=== PATIENT | male | born 1950 | race Caucasian/White ===

== ENCOUNTER → 2018-05-08 | Outpatient (CLI) | payer MEDICARE, OTHER ==
[~2018-05-08] MED LIST: IOPAMIDOL (ISOVUE 370) 100 ML BTL IV ONE
== END ==
LOC: FIMAGING 08:14
PROVIDERS: ATTEND Surgery
DX: N13.30 Unspecified hydronephrosis (principal); R19.02 Left upper quadrant abdominal swelling, mass and lump; I71.4 Abdominal aortic aneurysm, without rupture; R91.1 Solitary pulmonary nodule
CPT/HCPCS: 74174; Q9967; 82565-PO

== ENCOUNTER 2018-06-03 08:54 | Inpatient (IN) | payer OTHER ==
--- NOTE | 2018-06-03 09:01 | PDHPUP ---
History & Physical Update H&P update statement: This history and physical update is based on an assessment of the patient which was completed after admission or registration (within 24 hours), but prior to the surgery/procedure. H&P update: H&P reviewed & patient examined, no change in patient's condition since H&P completed
[2018-06-03] MEDS ORDERED: fentaNYL 100 MCG/2 ML INJ IVP PRN ×2 (09:17→15:05)
[2018-06-03] MEDS ORDERED: GLUCAGON HCL 1 MG VIAL IVP PRN (09:17)
[2018-06-03] MEDS ORDERED: NALOXONE HCL 0.4 MG/ML INJ IVP PRN ×2 (09:17→15:05)
[2018-06-03] MEDS ORDERED: FLUMAZENIL 0.5 MG/5 ML MDV IVP PRN (09:17)
[2018-06-03] MEDS ORDERED: PROTAMINE SULFATE 50 MG/5 ML VIAL IVP PRN (09:17)
[2018-06-03] MEDS ORDERED: ceFAZolin 2 GM/DEXTROSE 100 ML IV ONE (09:17)
[2018-06-03] MEDS ORDERED: MIDAZOLAM 2 MG/2 ML VIAL IVP PRN (09:17)
[2018-06-03] MEDS ORDERED: HEPARIN 10,000 UNIT/10 ML MDV (1,000 UNIT/ML) IVP PRN (09:17)
[2018-06-03] MEDS ORDERED: MEPERIDINE 25 MG/ML SYR IVP PRN (09:17)
[2018-06-03] MEDS ORDERED: ALTEPLASE 2 MG VIAL IVP PRN (09:17)
[2018-06-03] MEDS ORDERED: LR 1,000 ML IV ONE (09:17)
--- NOTE | 2018-06-03 09:26 | PDANEPAE ---
ANE Past Medical History - Cardiovascular History Hx Hypertension: No Hx Arrhythmias: No Hx Chest Pain: No Hx Coronary Artery / Peripheral Vascular Disease: No Hx CHF / Valvular Disease: No Hx Palpitations: No Cardiovascular History Comment: Slight heart enlargement - Pulmonary History Hx COPD: No Hx Asthma/Reactive Airway Disease: No Hx Recent Upper Respiratory Infection: No Hx Oxygen in Use at Home: No Hx Sleep Apnea: No - Neurologic History Hx Cerebrovascular Accident: No Hx Seizures: No Hx Dementia: No - Endocrine History Hx Diabetes: No Hypothyroid: No Hyperthyroid: No Obesity: yes, moderate - Renal History Hx Renal Disorders: No - Liver History Hx Hepatic Disorders: No - Neurological & Psychiatric Hx Hx Neurological and Psychiatric Disorders: No - Cancer History Hx Cancer: No - Congenital Disorder History Hx Congenital Disorders: No - GI History GERD: no Hx Gastrointestinal Disorders: No - Other Health History Other Health History: Wears dentures., Dry - Chronic Pain History Chronic Pain: No - Surgical History Prior Surgeries: Hydrocelectomy ANE Review of Systems Review of Systems: - Exercise capacity METS (RN): 4 METS ANE Patient History - Allergies Allergies/Adverse Reactions: petroleum Allergy (Uncoded 05/22/18 10:25) - Anes Hx Anes Hx: no prior problems - Smoking Hx Smoking Status: Current some day smoker Marijuana use: No - Alcohol Use Alcohol Use: Rarely - Family Anes Hx Family Anes Hx: neg - N/A ANE Labs/Vital Signs - Labs Result Diagrams: 06/03/18 10:00 06/03/18 10:00 - Vital Signs Height: 187.96 cm Weight: 136.531 kg ANE Physical Exam - Airway Neck exam: decreased ROM Mallampati Score: Class 3 Mouth exam: dentures - Pulmonary Pulmonary: no respiratory distress, no rales or rhonchi, clear to auscultation - Cardiovascular Cardiovascular: regular rate and rhythym, no murmur, rub, or gallop - ASA Status ASA Status: III ANE Anesthesia Plan Anesthesia Plan: general endotracheal anesthesia Lines/Monitors: arterial line Total IV Anesthesia: No
[2018-06-03] MEDS ORDERED: IOPAMIDOL (ISOVUE-300) 100 ML BTL ONE ×2 (10:37→15:01)
[2018-06-03] MEDS ORDERED: PROPOFOL 200 MG/20 ML VIAL ONE (10:52)
[2018-06-03] MEDS ORDERED: fentaNYL 100 MCG/2 ML INJ ONE ×2 (10:52→15:26)
[2018-06-03] MEDS ORDERED: ONDANSETRON 4 MG/2 ML VIAL ONE (10:52)
[2018-06-03] MEDS ORDERED: PROPOFOL/EMULSION 500 MG/50 ML BOTTLE IV ONE ×3 (10:52→13:49)
[2018-06-03] MEDS ORDERED: REMIFENTANIL HCL 1 MG VIAL ONE (10:52)
[2018-06-03] MEDS ORDERED: ROCURONIUM 100 MG/10 ML VIAL ONE (10:53)
[2018-06-03] MEDS ORDERED: CEFAZOLIN 1 GM/DEXTROSE/50 ML BAG IV ONE (10:55)
[2018-06-03] MEDS ORDERED: LIDOCAINE 2% 5 ML SDV ONE (11:00)
[2018-06-03] MEDS ORDERED: PHENYLEPHRINE HCL 100 MCG/ML SYR ONE ×2 (11:11→13:39)
[2018-06-03 11:18] LABS: PLATELET COUNT 192 10^3/uL (150-400)
[2018-06-03] MEDS ORDERED: LIDOCAINE 2% JELLY 20 ML (UROJECT) ONE (11:18)
[2018-06-03] MEDS ORDERED: ePHEDrine SULFATE 25 MG/5 ML SYR ONE ×2 (11:43→12:12)
[2018-06-03 11:47] LABS: INR 1.02 (0.83-1.16); PROTIME(PATIENT) 13.6 SEC (12.0-15.0)
[2018-06-03] MEDS ORDERED: HEPARIN 10,000 UNIT/10 ML MDV (1,000 UNIT/ML) ONE (12:15)
[2018-06-03] MEDS ORDERED: ROCURONIUM 50 MG/5 ML VIAL ONE (13:13)
[2018-06-03] MEDS ORDERED: ALBUMIN 5% 500 ML BOTTLE IV ONE (14:09)
[2018-06-03] MEDS ORDERED: ALBUMIN 5% 500 ML IV ONE ×2 (14:30)
[2018-06-03] MEDS ORDERED: NEOSTIGMINE METHYLSULFATE 5 MG/5 ML SYR ONE (14:36)
[2018-06-03] MEDS ORDERED: GLYCOPYRROLATE 0.2 MG/1 ML VIAL ONE ×5 (14:37)
[2018-06-03] MEDS ORDERED: ONDANSETRON DISINTEGRATING 4 MG TAB PO PRN (14:54)
[2018-06-03] MEDS ORDERED: ONDANSETRON 4 MG/2 ML VIAL IVP PRN ×2 (14:54→15:05)
[2018-06-03] MEDS ORDERED: POLYETHYLENE GLYCOL 3350 17 GM PKT PO PRN (14:54)
[2018-06-03] MEDS ORDERED: LACTULOSE 20 GM/30 ML UDCUP PO PRN (14:54)
[2018-06-03] MEDS ORDERED: MAGNESIUM HYDROXIDE 30 ML UDCUP PO PRN (14:54)
[2018-06-03] MEDS ORDERED: BISACODYL 10 MG SUPP PR PRN (14:54)
[2018-06-03] MEDS ORDERED: NS 1,000 ML IV SCH (15:00)
--- NOTE | 2018-06-03 15:03 | PDRADPN ---
Radiology Procedure Note Date of Procedure: 06/03/18 Radiologist: Triny Rodriguez Anesthesia: GET(General Endotracheal) Pre-op Diagnosis: AAA Post-op Diagnosis: SAME Indication: ENLARGING AAA Procedure: STENTGRAFT REPAIR OF AAA Inf/Abcess present in the surg proc area at time of surgery?: No
[2018-06-03] MEDS ORDERED: HYDROCODONE/APAP 5/325 TAB PO PRN (15:05)
[2018-06-03] MEDS ORDERED: PROMETHAZINE HCL 25 MG/ML INJ IVP PRN (15:05)
[2018-06-03] MEDS ORDERED: PHENYLEPHRINE HCL 100 MCG/ML SYR IVP PRN (15:05)
[2018-06-03] MEDS ORDERED: LR 500 ML IV PRN (15:05)
[2018-06-03] MEDS ORDERED: ACETAMINOPHEN 500 MG TAB PO PRN (15:05)
--- NOTE | 2018-06-03 15:07 | POSTANESTH ---
Post Anesthetic Evaluation Cardiovascular Status: Normal, Stable Respiratory Status: Normal, Stable Level of Consciousness/Mental Status: Can Participate in Eval Pain Control: Adequate, Prn Tx Ordered Nausea/Vomiting Control: Adequate, Prn Tx Ordered Complications Possibly Related to Anesthesia: None Noted
--- NOTE | 2018-06-03 16:47 | PDMN ---
Medical Necessity Medical necessity: MCG: AAA endovascular repair - 1 day: [facility] INPT only AAA without rupture 1 day OP: stent graft repair of AAA
[2018-06-03] MEDS: OXYCODONE/APAP 5/325 TAB PO PRN ×2 (17:11→19:35)
--- NOTE | 2018-06-03 18:36 | SOAPPROG ---
[facility] Progress Note Assessment/Plan: Assessment: DOING WELL POST AAA STENTGRAFT REPAIR. Plan: DISCUSSED PROCEDURE AND PLANS FOR TONIGHT WITH PATIENT. CONTINUE BED REST. OOB TO CHAIR TOMORROW. 06/03/18 18:35 Subjective: NO COMPLAINTS. AWAKE AND ALERT. Objective: Vital Signs Temp Pulse Resp BP Pulse Ox 36.3 C 80 18 132/71 H 99 06/03/18 16:07 06/03/18 18:00 06/03/18 18:00 06/03/18 18:00 06/03/18 18:00 Laboratory Results 06/03/18 14:56 06/03/18 10:00 06/02/18 06/03/18 06/04/18 05:59 05:59 05:59 Intake Total 2330 Output Total 1800 Balance 530 PT 13.6 SEC (12.0-15.0) 06/03/18 10:00 INR 1.02 (0.83-1.16) 06/03/18 10:00 SMALL AMOUNT OF HEME AT LEFT GROIN DRESSING. NO PALPABLE HEMATOMA ON EITHER SIDE. BOUNDING PEDAL PULSES. ICD10 Worksheet Patient Problems: Problems Problem Status Onset AAA (abdominal aortic aneurysm) without rupture Acute - ICD10 Problem Qualifiers (1) AAA (abdominal aortic aneurysm) without rupture
[2018-06-03] MEDS: SENNOSIDES/DOCUSATE SODIUM TAB PO SCH (19:36)
[2018-06-03] MEDS ORDERED: LORazepam 1 MG TAB PO PRN (21:50)
[2018-06-04 04:52] LABS: PLATELET COUNT 155 10^3/uL (150-400)
--- NOTE | 2018-06-04 06:59 | GOP ---
DATE OF OPERATION: 06/03/2018 SURGEON: Eddi Thakur MD ANESTHESIA: General. ANESTHESIOLOGIST: Dr. Jensen. PREOPERATIVE DIAGNOSIS: 7 cm infrarenal abdominal aortic aneurysm. POSTOPERATIVE DIAGNOSIS: 7 cm infrarenal abdominal aortic aneurysm. PROCEDURE PERFORMED: Percutaneous endovascular aortic aneurysm repair. FINDINGS: INDICATIONS: A 68-year-old male with a recent diagnosis of probable underlying bladder carcinoma. P reoperative imaging workup discloses a large 7 cm infrarenal abdominal aortic aneurysm. He is underg oing a percutaneous endovascular repair at this time. Surgical risks and benefits were explained to the patient at length including but not limited to bleeding, infection, open conversion, endoleak, ne ed for additional remedial interventions, renal injury, especially heightened by the patient's solita ry functioning right kidney; arterial injury; as well as others. All questions were entertained. He desires to proceed. Co-surgeons are being utilized given any possible anticipated access related co ncerns given the patient's anatomy. DESCRIPTION OF PROCEDURE: General anesthesia was induced. Bilateral common femoral arteries were ac cessed with micro puncture technique under direct ultrasound guidance. Multiple wire exchanges were undertaken along for ultimate placement of a 14-Turkish right groin sheath and 18-Turkish left groin sh eath. Perclose devices were deployed prior to final sheath placement. The [place] excluder graft was p assed up the left groin limb and deployed immediately beneath the dual right renal arteries. The rig ht limb of the graft was subsequently entered, allowing for placement of the contralateral limb, whic h was deployed into the common iliac artery. Angioplasty was performed at both proximally, distally, and at all limb trunk shins. Completion arteriography showed no evidence of endoleak, and preservat ion of the right dual renal arteries, as well as the internal and external iliac bifurcations. The r ight sheath was subsequently removed over a guidewire control. The Perclose device was initially penny sed with 4 vessel sealing. Multiple additional applications were utilized to allow for satisfactory closure of the right femoral artery access site with the final oozing being controlled with direct pr essure. Similar challenges were encountered with the left common femoral artery with graft removal w ith the use of a right balloon occlusion catheter and direct pressure. Multiple additional applicati ons of the Perclose device were able to be replaced also allowing for satisfactory closure of the ant erior wall of the common femoral artery. The wires and catheters were all removed. Satisfactory hem ostasis was assured. The patient was extubated in the interventional suite and taken to the intensiv e care unit uneventfully. CO-SURGEON: Eddi Thakur MD. INTERVENTIONAL RADIOLOGIST: Triny Rodriguez MD. Copy requested to: Dr. Lux Lee /[id number]/MODL
[2018-06-04] MEDS: SENNOSIDES/DOCUSATE SODIUM TAB PO SCH (08:47)
--- NOTE | 2018-06-04 09:25 | GDS ---
DISCHARGE DATE: June 04, 2018 PROCEDURE DATE: June 03, 2018. PROCEDURE: Percutaneous endovascular aortic aneurysm repair. DISCHARGE SUMMARY: This is a 68-year-old male who underwent a percutaneous endovascular aortic aneurysm repair on June 03, 2018, for a 7 cm infrarenal abdominal aortic aneurysm. He also has a notable recent diagnosis of underlying bladder carcinoma. He underwent an uncomplicated hospital course in the ICU postoperatively. Tolerating a regular diet. His pain is well controlled on NSAIDs and Tylenol. He has 2+ bounding pulses bilaterally, no notable groin hematomas, no lightheadedness, dizziness. No chest pain or shortness of breath. He will be discharged to home today. Wound care discussed with patient. May shower. Follow up in the office in 2 weeks. He will need a followup CT scan in 6 months. All questions addressed. Prescription provided for Julian. Continue all other home medications. /[id number]/MODL MTDD
--- NOTE | 2018-06-04 09:44 | SOAPPROG ---
[facility] Progress Note Assessment/Plan: Assessment: DOING WELL POST AAA STENTGRAFT REPAIR. Plan: DISCUSSED PROCEDURE AND PLANS FOR TONIGHT WITH PATIENT. CONTINUE BED REST. OOB TO CHAIR TOMORROW. 06/03/18 18:35 06/04/18 09:43 DOING WELL PPD 1 POST AAA STENTGRAFT REPAIR. D/C HOME TODAY F/U WITH DR. MUNGUIA IN CLINIC IN A FEW WEEKS. IR WILL CALL PATIENT WITH 6MONTH CTA F/U. Subjective: NO COMPLAINTS. SITTING IN CHAIR. TOLERATING PO. Objective: Vital Signs Temp Pulse Resp BP Pulse Ox 36.5 C 68 12 106/61 94 06/04/18 08:00 06/04/18 08:00 06/04/18 08:00 06/04/18 08:00 06/04/18 08:00 Laboratory Results 06/04/18 04:45 06/03/18 10:00 06/03/18 06/04/18 06/05/18 05:59 05:59 05:59 Intake Total 3713 218 Output Total 3300 300 Balance 413 -82 PT 13.6 SEC (12.0-15.0) 06/03/18 10:00 INR 1.02 (0.83-1.16) 06/03/18 10:00 NO HEMATOMA AT EITHER GROIN. PEDAL PULSES UNCHANGED. ICD10 Worksheet Patient Problems: Problems Problem Status Onset AAA (abdominal aortic aneurysm) without rupture Acute - ICD10 Problem Qualifiers (1) AAA (abdominal aortic aneurysm) without rupture
[2018-06-04] MEDS ORDERED: NS BOLUS 1000 ML (Wide open) IV ONE (10:30)
--- NOTE | 2018-06-04 12:01 | PDHOMEO2F ---
Home Oxygen Face to Face Home Orders: I certify that a physician or a nurse practitioner or physician's assistant manager airside operations has had a [id number] encounter with this patient on the date of this order due to the diagnosis listed, which relates to the primary reason the patient requires home oxygen. Alternative treatments have been tried, or considered, and deemed ineffective. It is anticipated that supplemental oxygen will result in improvement with treatment. Home oxygen qualifying diagnosis: copd Home oxygen secondary diagnosis: aaa SpO2 on room air (%): 80 Frequency of home oxygen needed: continuous Home oxygen liters per minute: 2 Home oxygen delivery device: nasal cannula Concentrator: Yes E-tanks for mobility and back up: Yes If ordering portable O2, is the patient mobile in the home?: Yes I certify that, based on these findings, the home oxygen is medically necessary for this patient for the following length of time. Length of time home oxygen needed: 1 month
[2018-06-04 12:49] VITALS: BP 130/66
== END 2018-06-04 13:43 | disposition home or self-care (01) | DRG 269 ==
LOC: FIMAGING 08:54 → F2N 14:54 → OBSVTOIN 14:54 → F2N 15:48
PROVIDERS: ADMIT Radiology Diagnostic Radiology; ATTEND Radiology Diagnostic Radiology
PROC: 04L03DZ Occlusion of Abdominal Aorta with Intraluminal Device, Percutaneous Approach (ICD-10-PCS; principal; 2018-06-03 10:30)
DX: I71.4 Abdominal aortic aneurysm, without rupture (principal); D41.4 Neoplasm of uncertain behavior of bladder; J98.4 Other disorders of lung; E66.9 Obesity, unspecified; Z72.0 Tobacco use
CPT/HCPCS: C1725; C1758; C1760; C1769; C1874; C1893; C1894; J0690; J1644; J2370; J2405; J2704; J2710; J3010; P9041; Q9967

== ENCOUNTER → 2019-01-05 | Outpatient (CLI) | payer OTHER | LOC: FIMAGING 09:41 | PROVIDERS: ATTEND Radiology Diagnostic Radiology | DX: I71.4 Abdominal aortic aneurysm, without rupture (principal) | CPT/HCPCS: 74174; J1642; Q9967; 82565-PO ==